=== PATIENT | male | born 1985 | race Caucasian/White ===

== ENCOUNTER → 2020-12-05 | Outpatient (CLI) | payer OTHER ==
--- NOTE | 2020-12-06 16:40 | SLEEPCENT ---
DATE: 12/05/2020 ORDERED BY: GERSON Ford Nocturnal polysomnography was performed for evaluation of sleep physiology in this patient with a history of excessive somnolence, morning headaches and nonrestorative sleep. Seven hours and 39 minutes of data were reviewed. There were 340 minutes of sleep identified. Sleep latency was mildly prolonged at 25.5 minutes. REM latency was also prolonged at 169 minutes. Sleep architecture showed fragmentation. There were two REM cycles noted. Overall sleep efficiency was 74.9%. The electrocardiogram showed a sinus rhythm with an average heart rate of 60 beats per minute. Rate ranged 40-75. EEG showed artifact and coarsening in background, otherwise reasonably normal waveforms for wake and sleep. There were 408 respiratory events identified of 10 seconds in duration or greater for an apnea-hypopnea index of 72. The events were primarily obstructive. However, 55 mixed and central apneas were also seen. The respiratory events were seen in all stages of sleep and were not associated with a particular sleep posture. Arousals from respiratory events occurred 42.9 times per hour, and oxygen desaturations were seen into the 70s. There was some activity noted in the limb leads but limb movement arousal index was only 2.3. Snoring was noted over the entire study. IMPRESSION: Severe obstructive sleep apnea syndrome (G47.33). Apnea-hypopnea index 72. RECOMMENDATION: The patient should be encouraged to return [facility] at [facility] earliest convenience for pressure therapy. In the interim, alcohol and sedative avoidance should be practiced and caution exercised during the operation of motor vehicles.
== END ==
LOC: M SLEEP 20:00
PROVIDERS: ATTEND Nurse Practitioner Family
DX: G47.33 Obstructive sleep apnea (adult) (pediatric) (principal)

== ENCOUNTER → 2021-01-30 | Outpatient (CLI) | payer OTHER ==
--- NOTE | 2021-01-31 18:53 | SLEEPCENT ---
DATE: 01/30/2021 ORDERED BY: GERSON Ford Nocturnal polysomnography was performed for the titration of pressure therapy in this patient with severe obstructive sleep apnea syndrome, apnea-hypopnea index of 72. For testing a ResMed AirFit F20 full face mask of large size was used, 4 cm of water pressure were applied to the circuit, and the lights were extinguished. Seven hours and 26 minutes of data were reviewed. There were 366 minutes of sleep identified. Sleep latency was normal at 6.5 minutes. REM latency was normal at 80 minutes. Sleep architecture was fairly good with three REM cycles. Minor fragmentation was seen. Overall sleep efficiency was 82.9%. The electrocardiogram showed a sinus rhythm with an average heart rate of 65 beats per minute. EEG showed normal waveforms for wake and sleep. Respiratory events were fully palliated with CPAP at a pressure of 17 and remaining measures of sleep physiology were normal. IMPRESSION: Obstructive sleep apnea syndrome (G47.33). RECOMMENDATION: Nightly use of pressure therapy 17 cm of water. cc: Mo Hernandez M.D.
== END ==
LOC: M SLEEP 20:00
PROVIDERS: ATTEND Nurse Practitioner Family
DX: G47.33 Obstructive sleep apnea (adult) (pediatric) (principal)